=== PATIENT | male | born 1980 | race Caucasian/White ===

== ENCOUNTER → 2018-11-15 | Outpatient (CLI) | payer BC ==
--- NOTE | 2018-11-15 13:04 | Diagnostic Imaging Report ---
Indication: Low back pain extending into the left leg. Time of exam: 12:49 PM Curvature and alignment of lumbar spine is normal. Vertebral body heights and disc spaces are well maintained. No fracture or subluxation is seen. Impression: No acute bony abnormality is identified. Dictated by: Dictated on workstation # [id number]
--- NOTE | 2018-11-15 13:05 | Diagnostic Imaging Report ---
Indication: Left hip pain. Time of exam: 12:48 PM Two views of the left hip are obtained. Femoral acetabular alignment is normal. Joint space is well maintained. Femoral head and neck are intact. No fractures are seen. Impression: No acute bony abnormality is detected. Dictated by: Dictated on workstation # [id number]
== END ==
LOC: RAD FS 12:18
PROVIDERS: ATTEND Nurse Practitioner Family
DX: M54.42 Lumbago with sciatica, left side (principal); M25.552 Pain in left hip
CPT/HCPCS: 72100; 73502

== ENCOUNTER → 2021-04-22 | Outpatient (CLI) | payer OTHER ==
[2021-04-22 13:31] LABS: ALANINE AMINOTRANSFERASE 38 U/L (0-55); ALBUMIN 4.6 GM/DL (3.2-4.5); ALKALINE PHOSPHATASE 72 U/L (40-136); BILIRUBIN,TOTAL 0.7 MG/DL (0.1-1.0); BUN/CREATININE RATIO 13; CALCIUM 9.6 MG/DL (8.5-10.1); CARBON DIOXIDE 26 MMOL/L (21-32); CHLORIDE 101 MMOL/L (98-107); CREATININE SERUM 1.06 MG/DL (0.60-1.30); GFR ESTIMATED 77; GLUCOSE 91 MG/DL (70-105); POTASSIUM 4.3 MMOL/L (3.6-5.0); SODIUM 138 MMOL/L (135-145); TOTAL PROTEIN 7.8 GM/DL (6.4-8.2)
[2021-04-22 15:40] LABS: TRIGLYCERIDES 75 MG/DL (<150); VLDL CHOLESTEROL 15 MG/DL (5-40)
[2021-04-22 15:45] LABS: CHOLESTEROL 171 MG/DL (< 200); HDL CHOLESTEROL 44 MG/DL (40-60)
== END ==
LOC: LAB FS 11:35
PROVIDERS: ATTEND Registered Nurse Emergency
DX: Z00.00 Encounter for general adult medical examination without abnormal findings (principal)
CPT/HCPCS: 36415; 80053; 80061